=== PATIENT | female | born 1965 | race Asian ===

== ENCOUNTER 2017-03-31 15:11 | Inpatient (IN) | payer MEDICAID ==
[~2017-03-31] VITALS: Ht 162.6 cm; Wt 64.1 kg
[~2017-03-31 15:11] MED LIST: CAR125T OR; FURO80TA PO; HYDR50TA15 PO; LEV50T PO; LEVO25TA6 PO; LOS50T PO; SIMV-8 PO
[2017-03-31 16:06] LABS: Basophils # (auto) 0.1 uL; Basophils % (auto) 1.4 % (0.0-2.0); Eosinophils # (auto) 0.2 uL; Eosinophils % (auto) 4.8 % (0.0-7.0); Hematocrit 30.9 % (36.0-46.0); Hemoglobin 10.6 g/dL (12.2-16.2); Lymphocytes # (auto) 0.8 uL; Lymphocytes % (auto) 16.8 % (10.0-50.0); Mean Corpuscular Hemoglobin 31.8 pg (28.0-32.0); Mean Corpuscular Hgb Conc. 34.2 g/dL (32.0-36.0); Mean Corpuscular Volume 93.2 fL (80.0-100.0); Mean Platelet Volume 8.6 fL (6.9-10.8); Monocytes # (auto) 0.4 uL; Monocytes % (auto) 8.5 % (0.0-12.0); Neutrophils # (auto) 3.4 uL; Neutrophils % (auto) 68.5 % (37.0-80.0); Platelet Count (auto) 159 10^3/uL (140-450); Red Cell Distribution Width 13.7 % (11.8-14.3)
[2017-03-31 16:20] LABS: INR 1.02 (0.9-1.15); Partial Thromboplastin Time 27.8 sec (22.64-33.71); Prothrombin Time 11.1 sec (9.37-12.3)
[2017-03-31 16:28] LABS: Albumin 3.6 g/dL (3.4-5.0); BUN/Creatinine Ratio 4.6; Bilirubin, Total 0.7 mg/dL (0.2-1.0); Calcium 7.4 mg/dL (8.5-10.1); Magnesium 2.2 mg/dL (1.6-2.6); Potassium 3.7 mmol/L (3.5-5.1); Total Protein 8.3 g/dL (6.4-8.2)
[2017-03-31 16:40] LABS: Temperature: 21.9 C (20.0-25.0)
[2017-03-31] MEDS ORDERED: FUROSEMIDE 40 MG/4 ML VIAL IV ONE (20:00)
[2017-03-31 21:30] VITALS: BP 183/76
[2017-03-31 21:35] VITALS: BP 183/76
[2017-03-31] MEDS: hydrALAZINE HCL 25 MG TAB PO SCH (22:17)
[2017-03-31] MEDS: ATORVASTATIN 20 MG TAB PO SCH (22:17)
[2017-03-31] MEDS: CARVEDILOL 12.5 MG TAB PO SCH (22:19)
[2017-03-31] MEDS ORDERED: GLIM4TAB42 PO (23:34)
[2017-03-31] MEDS ORDERED: AMLO5TAB2 PO (23:34)
[2017-03-31] MEDS ORDERED: PIO30T PO (23:34)
[2017-03-31] MEDS ORDERED: CARV12.544 PO (23:34)
[2017-04-01] MEDS ORDERED: DEXTROSE (50%) 50ML SYRG IV PRN (00:15)
[2017-04-01 05:00] VITALS: BP 144/72
[2017-04-01 06:13] LABS: Basophils # (auto) 0 uL; Eosinophils # (auto) 0.3 uL; Eosinophils % (auto) 6.6 % (0.0-7.0); Hematocrit 29.7 % (36.0-46.0); Lymphocytes % (auto) 20.7 % (10.0-50.0); Mean Corpuscular Hemoglobin 31.8 pg (28.0-32.0); Mean Corpuscular Hgb Conc. 33.6 g/dL (32.0-36.0); Mean Corpuscular Volume 94.4 fL (80.0-100.0); Mean Platelet Volume 8.5 fL (6.9-10.8); Monocytes # (auto) 0.5 uL; Monocytes % (auto) 10.2 % (0.0-12.0); Neutrophils # (auto) 2.9 uL; Neutrophils % (auto) 61.5 % (37.0-80.0); Nucleated Red Blood Cells % 0.1 %; Platelet Count (auto) 143 10^3/uL (140-450); Red Cell Distribution Width 13.4 % (11.8-14.3); White Blood Cell 4.6 10^3/uL (4.4-10.8)
[2017-04-01] MEDS: InsuLIN REG 1unit/0.01ml Soln (100units/ml) SC SCH ×4 (06:48→22:14)
[2017-04-01 06:49] LABS: BUN/Creatinine Ratio 5.6; Calcium 7.4 mg/dL (8.5-10.1); Potassium 3.6 mmol/L (3.5-5.1)
[2017-04-01] MEDS: ACCU-CHEK COMFORT CURVE STRIP VI SCH ×4 (06:49→22:15)
[2017-04-01 06:50] LABS: Albumin 3.2 g/dL (3.4-5.0); Bilirubin, Total 0.5 mg/dL (0.2-1.0); Magnesium 2.2 mg/dL (1.6-2.6); Phosphorus 4.1 mg/dL (2.5-4.90); Total Protein 6.9 g/dL (6.4-8.2)
[2017-04-01] MEDS: LEVOTHYROXINE SODIUM 25 MCG TAB PO SCH (06:52)
[2017-04-01 08:00] VITALS: BP 146/59
[2017-04-01 09:00] VITALS: BP 146/59
[2017-04-01] MEDS: hydrALAZINE HCL 25 MG TAB PO SCH ×2 (10:24→22:04)
[2017-04-01] MEDS: BUMETANIDE 1 MG TAB PO SCH (10:25)
[2017-04-01] MEDS: CARVEDILOL 12.5 MG TAB PO SCH ×2 (10:25→22:04)
[2017-04-01] MEDS: LOSARTAN POTASSIUM 25 MG TAB PO SCH (10:26)
[2017-04-01] MEDS: HEPARIN SODIUM (PORCINE) 5000 UNITS/ML 1ML VIAL SC SCH ×2 (10:29→22:14)
[2017-04-01 13:00] VITALS: BP 155/71
[2017-04-01 16:59] VITALS: BP 142/67
[2017-04-01] MEDS: ATORVASTATIN 20 MG TAB PO SCH (22:03)
[2017-04-01 22:06] VITALS: BP 150/54
[2017-04-02 04:51] VITALS: BP 148/68
[2017-04-02 06:13] LABS: Basophils # (auto) 0 uL; Eosinophils # (auto) 0.3 uL; Eosinophils % (auto) 6.8 % (0.0-7.0); Hematocrit 29.6 % (36.0-46.0); Lymphocytes % (auto) 19.8 % (10.0-50.0); Mean Corpuscular Hemoglobin 31.9 pg (28.0-32.0); Mean Corpuscular Hgb Conc. 33.8 g/dL (32.0-36.0); Mean Corpuscular Volume 94.2 fL (80.0-100.0); Monocytes # (auto) 0.5 uL; Monocytes % (auto) 9.3 % (0.0-12.0); Neutrophils # (auto) 3.2 uL; Neutrophils % (auto) 63.1 % (37.0-80.0); Nucleated Red Blood Cells % 0.1 %; Platelet Count (auto) 145 10^3/uL (140-450); Red Cell Distribution Width 13.7 % (11.8-14.3); White Blood Cell 5.1 10^3/uL (4.4-10.8)
[2017-04-02] MEDS: LEVOTHYROXINE SODIUM 25 MCG TAB PO SCH (06:34)
[2017-04-02 06:36] LABS: Albumin 3.2 g/dL (3.4-5.0); BUN/Creatinine Ratio 6.1; Bilirubin, Total 0.6 mg/dL (0.2-1.0); Magnesium 2.5 mg/dL (1.6-2.6); Phosphorus 5.4 mg/dL (2.5-4.90); Potassium 3.7 mmol/L (3.5-5.1); Total Protein 7.2 g/dL (6.4-8.2)
[2017-04-02] MEDS: ACCU-CHEK COMFORT CURVE STRIP VI SCH ×4 (06:46→22:00)
[2017-04-02] MEDS: InsuLIN REG 1unit/0.01ml Soln (100units/ml) SC SCH ×4 (06:46→22:00)
[2017-04-02 08:00] VITALS: BP 137/47
[2017-04-02] MEDS: BUMETANIDE 1 MG TAB PO SCH (10:20)
[2017-04-02] MEDS: CARVEDILOL 12.5 MG TAB PO SCH ×2 (10:20→22:31)
[2017-04-02] MEDS: hydrALAZINE HCL 25 MG TAB PO SCH ×2 (10:21→22:31)
[2017-04-02] MEDS: LOSARTAN POTASSIUM 25 MG TAB PO SCH (10:21)
[2017-04-02] MEDS: HEPARIN SODIUM (PORCINE) 5000 UNITS/ML 1ML VIAL SC SCH ×2 (10:24→22:45)
[2017-04-02 12:00] VITALS: BP 135/63
[2017-04-02 15:24] LABS: Urine Bilirubin Negative (Negative); Urine Blood 2+ /uL (Negative); Urine Color Yellow (Yellow); Urine Glucose 1+ mg/dL (Normal); Urine Ketone Negative (Negative); Urine Mucus FEW (None Seen); Urine Nitrite Negative (Negative); Urine RBC 2 /hpf (0 - 4); Urine Squamous Epithelial Cell MOD /hpf (<5); Urine Urobilinogen Normal (Negative); Urine pH 7.5 (5.0-8.0)
[2017-04-02 17:00] VITALS: BP 149/56
[2017-04-02 22:00] VITALS: BP 169/55
[2017-04-02] MEDS: ATORVASTATIN 20 MG TAB PO SCH (22:32)
[2017-04-03 05:20] VITALS: BP 153/66
[2017-04-03 05:41] LABS: Calcium 7.2 mg/dL (8.5-10.1); Potassium 4.5 mmol/L (3.5-5.1)
[2017-04-03 05:46] LABS: BUN/Creatinine Ratio 6.6
[2017-04-03] MEDS: LEVOTHYROXINE SODIUM 25 MCG TAB PO SCH (06:25)
[2017-04-03] MEDS: InsuLIN REG 1unit/0.01ml Soln (100units/ml) SC SCH ×4 (06:26→22:01)
[2017-04-03] MEDS: ACCU-CHEK COMFORT CURVE STRIP VI SCH ×4 (06:26→22:01)
[2017-04-03 08:00] VITALS: BP 124/51
[2017-04-03] MEDS ORDERED: SODIUM CHL 0.9% 1000 ML BAG XX ONE (08:00)
[2017-04-03] MEDS ORDERED: EPOETIN ALFA 3,000 UNIT/1 ML VIAL IV ONE (08:00)
[2017-04-03] MEDS ORDERED: EPOETIN ALFA 2,000 UNIT/1 ML VIAL IV ONE (08:00)
[2017-04-03] MEDS: CARVEDILOL 12.5 MG TAB PO SCH ×2 (09:28→22:01)
[2017-04-03] MEDS: hydrALAZINE HCL 25 MG TAB PO SCH ×2 (09:29→22:00)
[2017-04-03] MEDS: BUMETANIDE 1 MG TAB PO SCH (09:29)
[2017-04-03] MEDS: LOSARTAN POTASSIUM 25 MG TAB PO SCH (09:30)
[2017-04-03] MEDS: HEPARIN SODIUM (PORCINE) 5000 UNITS/ML 1ML VIAL SC SCH ×2 (10:00→22:02)
[2017-04-03 12:00] VITALS: BP 146/71
[2017-04-03 17:00] VITALS: BP 178/70
[2017-04-03] MEDS: ATORVASTATIN 20 MG TAB PO SCH (22:01)
[2017-04-03 22:07] VITALS: BP 179/75
[2017-04-04 05:21] VITALS: BP 138/59
[2017-04-04 06:26] LABS: Basophils # (auto) 0 uL; Basophils % (auto) 0.9 % (0.0-2.0); Eosinophils # (auto) 0.3 uL; Eosinophils % (auto) 5.2 % (0.0-7.0); Hematocrit 31.7 % (36.0-46.0); Hemoglobin 10.7 g/dL (12.2-16.2); Lymphocytes # (auto) 1.1 uL; Lymphocytes % (auto) 23.4 % (10.0-50.0); Mean Corpuscular Hemoglobin 32.2 pg (28.0-32.0); Mean Corpuscular Hgb Conc. 33.9 g/dL (32.0-36.0); Mean Platelet Volume 9.3 fL (6.9-10.8); Monocytes # (auto) 0.5 uL; Neutrophils % (auto) 60.5 % (37.0-80.0); Platelet Count (auto) 140 10^3/uL (140-450); Red Cell Distribution Width 13.7 % (11.8-14.3); White Blood Cell 4.9 10^3/uL (4.4-10.8)
[2017-04-04 06:28] LABS: BUN/Creatinine Ratio 5.3; Potassium 4.6 mmol/L (3.5-5.1)
[2017-04-04 06:29] LABS: Calcium 7.9 mg/dL (8.5-10.1)
[2017-04-04] MEDS: ACCU-CHEK COMFORT CURVE STRIP VI SCH ×4 (06:33→21:55)
[2017-04-04] MEDS: InsuLIN REG 1unit/0.01ml Soln (100units/ml) SC SCH ×4 (06:33→21:56)
[2017-04-04] MEDS: LEVOTHYROXINE SODIUM 25 MCG TAB PO SCH (06:33)
[2017-04-04 08:00] VITALS: BP 139/63
[2017-04-04 09:00] VITALS: BP 139/63
[2017-04-04] MEDS: LOSARTAN POTASSIUM 25 MG TAB PO SCH (10:00)
[2017-04-04] MEDS: HEPARIN SODIUM (PORCINE) 5000 UNITS/ML 1ML VIAL SC SCH ×2 (10:00→21:58)
[2017-04-04] MEDS: BUMETANIDE 1 MG TAB PO SCH (10:39)
[2017-04-04] MEDS: hydrALAZINE HCL 25 MG TAB PO SCH ×2 (10:40→21:54)
[2017-04-04] MEDS: CARVEDILOL 12.5 MG TAB PO SCH ×2 (10:41→21:55)
[2017-04-04 12:40] VITALS: BP 152/74
[2017-04-04] MEDS ORDERED: IOHEXOL 350 MG/ML 100ML IJ ONE ×2 (14:36→17:30)
[2017-04-04] MEDS ORDERED: LIDOCAINE 2%HCL (LOCAL ANESTH.) INJ 20ML MDV ONE (14:37)
[2017-04-04] MEDS ORDERED: MIDAZOLAM HCL 1MG/1ML-2 ML VIAL ONE (17:30)
[2017-04-04] MEDS ORDERED: SODIUM CHL 0.9% 0 ML ONE (17:30)
[2017-04-04] MEDS ORDERED: fentaNYL CITRATE 100 MCG/2 ML VL ONE (17:30)
[2017-04-04] MEDS ORDERED: ANGIOMAX 250 MG VIAL IV ONE (17:30)
[2017-04-04 20:00] VITALS: BP 143/72
[2017-04-04] MEDS: ATORVASTATIN 20 MG TAB PO SCH (21:54)
[2017-04-04] MEDS: SODIUM CHLOR 0.9% PF (SALINE LOCK) 10ML VIAL IV SCH (21:59)
[2017-04-04 22:21] VITALS: BP 143/72
[2017-04-05 04:57] VITALS: BP 172/71
[2017-04-05] MEDS: SODIUM CHLOR 0.9% PF (SALINE LOCK) 10ML VIAL IV SCH ×2 (05:53→16:45)
[2017-04-05] MEDS: ACCU-CHEK COMFORT CURVE STRIP VI SCH ×3 (06:39→17:00)
[2017-04-05] MEDS: InsuLIN REG 1unit/0.01ml Soln (100units/ml) SC SCH ×3 (06:39→17:00)
[2017-04-05] MEDS: LEVOTHYROXINE SODIUM 25 MCG TAB PO SCH (06:40)
[2017-04-05 07:10] LABS: BUN/Creatinine Ratio 6.4; Potassium 5.3 mmol/L (3.5-5.1)
[2017-04-05 08:00] VITALS: BP 134/59
[2017-04-05] MEDS ORDERED: EPOETIN ALFA 2,000 UNIT/1 ML VIAL IV ONE (08:00)
[2017-04-05] MEDS ORDERED: SODIUM CHL 0.9% 1000 ML BAG XX ONE ×2 (08:00→12:15)
[2017-04-05] MEDS ORDERED: EPOETIN ALFA 3,000 UNIT/1 ML VIAL IV ONE ×2 (08:00→12:15)
[2017-04-05 09:00] VITALS: BP 134/59
[2017-04-05] MEDS: hydrALAZINE HCL 25 MG TAB PO SCH (09:39)
[2017-04-05] MEDS: LOSARTAN POTASSIUM 25 MG TAB PO SCH (09:40)
[2017-04-05] MEDS: BUMETANIDE 1 MG TAB PO SCH (09:40)
[2017-04-05] MEDS: CARVEDILOL 12.5 MG TAB PO SCH (09:41)
[2017-04-05] MEDS: HEPARIN SODIUM (PORCINE) 5000 UNITS/ML 1ML VIAL SC SCH (09:45)
[2017-04-05 12:00] VITALS: BP 149/55
[2017-04-05 12:17] VITALS: BP 134/59
[2017-04-05 17:00] VITALS: BP 105/65
== END 2017-04-05 18:38 | disposition home or self-care (01) | DRG 192 ==
LOC: ER 15:20 → TELE 15:21 → TELE-WESTW 21:30
PROVIDERS: ADMIT Nurse Practitioner Acute Care; ATTEND Internal Medicine
PROC: 5A1D70Z Performance of Urinary Filtration, Intermittent, Less than 6 Hours Per Day (ICD-10-PCS; 2017-04-03)
PROC: 4A023N7 Measurement of Cardiac Sampling and Pressure, Left Heart, Percutaneous Approach (ICD-10-PCS; principal; 2017-04-04)
PROC: B2111ZZ Fluoroscopy of Multiple Coronary Arteries using Low Osmolar Contrast (ICD-10-PCS; 2017-04-04)
PROC: B2151ZZ Fluoroscopy of Left Heart using Low Osmolar Contrast (ICD-10-PCS; 2017-04-04)
PROC: 5A1D70Z Performance of Urinary Filtration, Intermittent, Less than 6 Hours Per Day (ICD-10-PCS; 2017-04-05)
DX: I13.2 Hypertensive heart and chronic kidney disease with heart failure and with stage 5 chronic kidney disease, or end stage renal disease (principal); I21.4 Non-ST elevation (NSTEMI) myocardial infarction; N18.6 End stage renal disease; I50.43 Acute on chronic combined systolic (congestive) and diastolic (congestive) heart failure; E44.0 Moderate protein-calorie malnutrition; E11.21 Type 2 diabetes mellitus with diabetic nephropathy; E11.22 Type 2 diabetes mellitus with diabetic chronic kidney disease; E87.1 Hypo-osmolality and hyponatremia; E78.5 Hyperlipidemia, unspecified; E11.51 Type 2 diabetes mellitus with diabetic peripheral angiopathy without gangrene; D63.8 Anemia in other chronic diseases classified elsewhere; I25.10 Atherosclerotic heart disease of native coronary artery without angina pectoris; E03.9 Hypothyroidism, unspecified; Z82.49 Family history of ischemic heart disease and other diseases of the circulatory system; Z99.2 Dependence on renal dialysis; Z68.24 Body mass index [BMI] 24.0-24.9, adult; Z79.02 Long term (current) use of antithrombotics/antiplatelets; Z79.82 Long term (current) use of aspirin; Z79.899 Other long term (current) drug therapy
CPT/HCPCS: 36415; 71010; 71250; 80048; 80053; 81001; 82962; 83036; 83735; 83880; 84100; 84484; 85025; 85379; 85610; 85730; 87081; 90935; 93005; 93306; 93458; 96374; 99152; 99153; J1642; J1815; J2250; Q4081

== ENCOUNTER 2018-07-16 11:42 | Emergency (ER) | payer MEDICAID ==
[~2018-07-16] VITALS: Ht 157.5 cm; Wt 63.5 kg
[~2018-07-16 11:42] MED LIST changes: +AMLO5TAB13 PO; -CAR125T OR; +CARV12.544 PO; -FURO80TA PO; +GLIM4TAB42 PO; -HYDR50TA15 PO; -LEV50T PO; -LEVO25TA6 PO; -LOS50T PO; +PIO30T PO; -SIMV-8 PO
[2018-07-16 14:08] LABS: Basophils # (auto) 0.1 uL; Basophils % (auto) 1.1 % (0.0-2.0); Eosinophils # (auto) 0.2 uL; Eosinophils % (auto) 3.8 % (0.0-7.0); Hematocrit 38.1 % (36.0-46.0); Hemoglobin 12.8 g/dL (12.2-16.2); Lymphocytes # (auto) 0.8 uL; Lymphocytes % (auto) 14.3 % (10.0-50.0); Mean Corpuscular Hemoglobin 33.4 pg (28.0-32.0); Mean Corpuscular Hgb Conc. 33.6 g/dL (32.0-36.0); Mean Corpuscular Volume 99.4 fL (80.0-100.0); Monocytes # (auto) 0.4 uL; Neutrophils # (auto) 4.3 uL; Neutrophils % (auto) 73.8 % (37.0-80.0); Nucleated Red Blood Cells % 0.1 %; Platelet Count (auto) 156 10^3/uL (140-450); Red Blood Cells 3.83 10^6/uL (4.0-5.20); Red Cell Distribution Width 15.7 % (11.8-14.3); White Blood Cell 5.8 10^3/uL (4.4-10.8)
[2018-07-16 14:24] LABS: Alanine Aminotransferase 38 U/L (13-56); Albumin 3.5 g/dL (3.4-5.0); Anion Gap 7 (5-15); Aspartate Aminotransferase 20 U/L (15-37); Blood Urea Nitrogen 12 mg/dL (7-18); Calcium 7.9 mg/dL (8.5-10.1); Carbon Dioxide 28 mmol/L (21-32); Chloride 102 mmol/L (98-107); Glucose 64 mg/dL (74-106); Potassium 3.3 mmol/L (3.5-5.1); Sodium 137 mmol/L (136-145)
[2018-07-16 14:29] LABS: Alkaline Phosphatase 122 U/L (45-117); BUN/Creatinine Ratio 3.8; GFR African American 20 mL/min; GFR Non-African American 17 mL/min; Total Protein 7.9 g/dL (6.4-8.2)
[2018-07-16] MEDS ORDERED: cloNIDine HCL 0.1 MG TAB ONE (14:42)
[2018-07-16] MEDS ORDERED: cloNIDine HCL 0.1 MG TAB PO ONE (14:45)
[2018-07-16 15:30] VITALS: BP 168/97
== END 2018-07-16 14:58 | disposition home or self-care (01) ==
LOC: EDBD 11:42 → ER 11:42
DX: E11.22 Type 2 diabetes mellitus with diabetic chronic kidney disease (principal); I13.2 Hypertensive heart and chronic kidney disease with heart failure and with stage 5 chronic kidney disease, or end stage renal disease; I50.9 Heart failure, unspecified; N18.6 End stage renal disease; E78.5 Hyperlipidemia, unspecified; Z99.2 Dependence on renal dialysis
CPT/HCPCS: 36415; 71045; 80053; 84484; 85025; 93005

== ENCOUNTER 2020-11-13 00:28 | Emergency (ER) | payer MEDICARE, MEDICAID ==
[~2020-11-13] VITALS: Ht 172.7 cm; Wt 56.7 kg
[2020-11-13 00:28] VITALS: BP 143/62
[~2020-11-13 00:28] MED LIST changes: +AMLO-489 PO; -AMLO5TAB13 PO
== END 2020-11-13 02:28 | disposition left against medical advice (07) ==
LOC: ER 00:28
DX: L02.414 Cutaneous abscess of left upper limb (principal); Z53.21 Procedure and treatment not carried out due to patient leaving prior to being seen by health care provider

== ENCOUNTER 2021-11-21 06:17 | Inpatient (IN) | payer MEDICARE, MEDICAID ==
[~2021-11-21] VITALS: Ht 162.6 cm; Wt 61.0 kg
[2021-11-21] MEDS ORDERED: FUROSEMIDE 40 MG/4 ML VIAL IV ONE (07:00)
[2021-11-21 07:02] LABS: Hematocrit 32.8 % (36.0-46.0); Mean Corpuscular Hemoglobin 31.5 pg (28.0-32.0); Mean Corpuscular Hgb Conc. 33.4 g/dL (32.0-36.0); Mean Corpuscular Volume 94.1 fL (80.0-100.0); Red Blood Cells 3.49 10^6/uL (4.0-5.20); Red Cell Distribution Width 14.5 % (11.8-14.3); White Blood Cell 5.9 10^3/uL (4.4-10.8)
[2021-11-21 07:07] LABS: Basophils % (manual) 0 (0.0-2.0); Blast Cells 0; Metamyelocytes % 0; Monocytes % (manual) 0 (0-12); Myelocytes % 0; Promyelocytes % 0; Reactive Lymphocytes 0
[2021-11-21] MEDS ORDERED: hydrALAZINE HCL 20 MG/ML VL IV ONE (07:15)
[2021-11-21 07:20] LABS: Albumin 3.4 g/dL (3.4-5.0); Calcium 7.9 mg/dL (8.5-10.1); Potassium 4.9 mmol/L (3.5-5.1)
[2021-11-21 07:22] LABS: Bilirubin, Total 0.5 mg/dL (0.2-1.0)
[2021-11-21 07:34] LABS: Band Neutrophils % (manual) 3; Eosinophils % (manual) 8 (0-7); Lymphocytes % (manual) 25 (10.0-50.0)
[2021-11-21] MEDS ORDERED: ONDANSETRON HCL 4 MG/2 ML VIAL IV ONE (07:45)
[2021-11-21] MEDS ORDERED: PROCHLORPERAZINE EDISYLATE 5 MG/ML 2ML VIAL IV ONE (09:45)
[2021-11-21] MEDS ORDERED: ACETAMINOPHEN 325 MG TAB PO PRN (10:00)
[2021-11-21] MEDS ORDERED: NITROGLYCERIN 0.4 MG SL TAB SL PRN (10:00)
[2021-11-21] MEDS ORDERED: DOCUSATE SOD 100 MG CAP PO PRN (10:00)
[2021-11-21] MEDS ORDERED: MORPHINE SULFATE INJ 2 MG/ml SYRG IV PRN ×2 (10:00)
[2021-11-21] MEDS: ZINC SULFATE 220mg CAP or TAB PO SCH (10:39)
[2021-11-21] MEDS: MULTIPLE VITAMIN TAB PO SCH (10:39)
[2021-11-21] MEDS: ASCORBIC ACID 500 MG TAB PO SCH ×2 (10:39→22:54)
[2021-11-21] MEDS: cefTRIAXone 1GM/50ML D5W 50 ML IV SCH (11:23)
[2021-11-21 13:00] VITALS: BP 160/90
[2021-11-21] MEDS: HYDROcodone-ACET 5/325MG TAB PO PRN ×2 (13:19→22:54)
[2021-11-21 16:00] VITALS: BP 149/84
[2021-11-21 22:00] VITALS: BP 180/75
[2021-11-21] MEDS: CARVEDILOL 3.125 MG TAB PO SCH (22:54)
[2021-11-22] MEDS: hydrALAZINE HCL 20 MG/ML VL IV PRN ×2 (00:17→15:23)
[2021-11-22] MEDS: HYDROcodone-ACET 5/325MG TAB PO PRN ×2 (06:08→21:58)
[2021-11-22 07:14] LABS: Basophils # (auto) 0.1 10 ^3/uL (0-0.2); Eosinophils # (auto) 0.3 10 ^3/uL (0-0.8); Eosinophils % (auto) 3.9 % (0.0-7.0); Hematocrit 28.8 % (36.0-46.0); Hemoglobin 9.5 g/dL (12.2-16.2); Lymphocytes # (auto) 0.8 10 ^3/uL (0.4-5.4); Mean Corpuscular Hemoglobin 31.5 pg (28.0-32.0); Mean Corpuscular Hgb Conc. 33.1 g/dL (32.0-36.0); Mean Corpuscular Volume 95.3 fL (80.0-100.0); Monocytes # (auto) 0.4 10 ^3/uL (0-1.3); Neutrophils # (auto) 5.7 10 ^3/uL (1.6-8.6); Neutrophils % (auto) 78.1 % (37.0-80.0); Nucleated Red Blood Cells % 0.1 %; Red Blood Cells 3.02 10^6/uL (4.0-5.20); Red Cell Distribution Width 14.7 % (11.8-14.3); White Blood Cell 7.3 10^3/uL (4.4-10.8)
[2021-11-22 07:28] LABS: Albumin 3.2 g/dL (3.4-5.0); BUN/Creatinine Ratio 7.9; Bilirubin, Total 0.5 mg/dL (0.2-1.0); Total Protein 6.7 g/dL (6.4-8.2)
[2021-11-22 07:40] LABS: Potassium 5.9 mmol/L (3.5-5.1)
[2021-11-22 08:00] VITALS: BP 156/57
[2021-11-22] MEDS: ZINC SULFATE 220mg CAP or TAB PO SCH (08:38)
[2021-11-22] MEDS: cefTRIAXone 1GM/50ML D5W 50 ML IV SCH (08:38)
[2021-11-22] MEDS: ONDANSETRON HCL 4 MG/2 ML VIAL IV PRN ×2 (08:39→20:58)
[2021-11-22] MEDS: CARVEDILOL 3.125 MG TAB PO SCH ×2 (08:39→21:57)
[2021-11-22] MEDS: ASCORBIC ACID 500 MG TAB PO SCH ×2 (08:39→21:58)
[2021-11-22] MEDS: MULTIPLE VITAMIN TAB PO SCH (08:39)
[2021-11-22 09:25] VITALS: BP 156/57
[2021-11-22 09:29] VITALS: BP 156/57
[2021-11-22] MEDS ORDERED: CALCIUM GLUC 1,000mg/50ml-NS 50 ML IV ONE (10:30)
[2021-11-22] MEDS ORDERED: SODIUM CHL 0.9% 1000 ML BAG XX ONE (10:30)
[2021-11-22 16:00] VITALS: BP 178/68
[2021-11-22] MEDS ORDERED: DEXTROSE (50%) 50ML SYRG IV PRN (16:15)
[2021-11-22] MEDS: LOSARTAN POTASSIUM 50 MG TAB PO SCH (16:15)
[2021-11-22] MEDS: ACCU-CHEK COMFORT CURVE STRIP VI SCH ×2 (16:34→22:08)
[2021-11-22] MEDS: InsuLIN REG 1unit/0.01ml Soln (100units/ml) SC SCH ×2 (16:34→22:11)
[2021-11-22 17:23] VITALS: BP 178/68
[2021-11-22] MEDS ORDERED: EPOETIN ALFA-EPBX 4,000 UNIT/ML VIAL SC ONE (21:00)
[2021-11-22] MEDS: ATORVASTATIN 20 MG TAB PO SCH (21:58)
[2021-11-23] VITALS (7 sets, daily range): BP systolic 100–196; BP diastolic 45–92
[2021-11-23] MEDS: InsuLIN REG 1unit/0.01ml Soln (100units/ml) SC SCH ×4 (06:41→22:00)
[2021-11-23] MEDS: ACCU-CHEK COMFORT CURVE STRIP VI SCH ×4 (06:41→22:07)
[2021-11-23] MEDS: cefTRIAXone 1GM/50ML D5W 50 ML IV SCH (09:31)
[2021-11-23] MEDS: ZINC SULFATE 220mg CAP or TAB PO SCH (09:31)
[2021-11-23] MEDS: MULTIPLE VITAMIN TAB PO SCH (09:31)
[2021-11-23] MEDS: ASCORBIC ACID 500 MG TAB PO SCH ×2 (09:31→22:07)
[2021-11-23] MEDS: CARVEDILOL 3.125 MG TAB PO SCH ×2 (09:32→22:08)
[2021-11-23] MEDS: LOSARTAN POTASSIUM 50 MG TAB PO SCH (09:32)
[2021-11-23] MEDS: amLODIPine BESYLATE 5 MG TAB PO SCH (09:33)
[2021-11-23 10:57] LABS: BUN/Creatinine Ratio 6.1; Calcium 7.6 mg/dL (8.5-10.1); Potassium 4.4 mmol/L (3.5-5.1)
[2021-11-23] MEDS ORDERED: hydrALAZINE HCL 25 MG TAB PO ONE (12:45)
[2021-11-23] MEDS ORDERED: SODIUM CHL 0.9% 1000 ML BAG XX ONE (13:15)
[2021-11-23 13:30] LABS: Hematocrit 31.2 % (36.0-46.0); Hemoglobin 10.3 g/dL (12.2-16.2)
[2021-11-23] MEDS: HYDROcodone-ACET 5/325MG TAB PO PRN (20:49)
[2021-11-23] MEDS ORDERED: EPOETIN ALFA-EPBX 10,000 UNIT/1ML VIAL SC ONE (21:00)
[2021-11-23] MEDS: ATORVASTATIN 20 MG TAB PO SCH (22:07)
[2021-11-24 05:00] VITALS: BP 94/35
[2021-11-24 05:29] LABS: Calcium 7.7 mg/dL (8.5-10.1); Potassium 4.1 mmol/L (3.5-5.1)
[2021-11-24 06:24] VITALS: BP 154/70
[2021-11-24] MEDS: ACCU-CHEK COMFORT CURVE STRIP VI SCH ×2 (06:26→12:06)
[2021-11-24] MEDS: InsuLIN REG 1unit/0.01ml Soln (100units/ml) SC SCH ×2 (06:26→12:07)
[2021-11-24 09:00] VITALS: BP 162/78
[2021-11-24] MEDS: ASCORBIC ACID 500 MG TAB PO SCH (09:52)
[2021-11-24] MEDS: MULTIPLE VITAMIN TAB PO SCH (09:54)
[2021-11-24] MEDS: ZINC SULFATE 220mg CAP or TAB PO SCH (09:54)
[2021-11-24] MEDS: amLODIPine BESYLATE 5 MG TAB PO SCH (09:54)
[2021-11-24] MEDS: CARVEDILOL 3.125 MG TAB PO SCH (09:56)
[2021-11-24] MEDS: cefTRIAXone 1GM/50ML D5W 50 ML IV SCH (09:56)
[2021-11-24] MEDS ORDERED: LOSARTAN POTASSIUM 50 MG TAB PO SCH (10:00)
[2021-11-24 13:00] VITALS: BP 183/81
[2021-11-24] MEDS ORDERED: LOSA-69 PO (15:28)
[2021-11-24] MEDS ORDERED: CAR3125T PO (15:28)
[2021-11-24] MEDS ORDERED: AML5T PO (15:28)
[2021-11-24] MEDS ORDERED: ATOR20TA50 PO (15:28)
[2021-11-24] MEDS ORDERED: DOXY-346 PO (15:29)
[2021-11-24 16:26] VITALS: BP 173/81
[2021-11-24 17:00] VITALS: BP 143/59
== END 2021-11-24 16:55 | disposition home or self-care (01) | DRG 193 ==
LOC: EDBD 06:17 → ER 06:17 → OVERFLOW 09:58 → TELE-WESTW 12:53
PROVIDERS: ADMIT Internal Medicine; ATTEND Internal Medicine
PROC: 5A1D70Z Performance of Urinary Filtration, Intermittent, Less than 6 Hours Per Day (ICD-10-PCS; principal; 2021-11-22)
PROC: 5A1D70Z Performance of Urinary Filtration, Intermittent, Less than 6 Hours Per Day (ICD-10-PCS; 2021-11-23)
DX: J18.9 Pneumonia, unspecified organism (principal); I50.43 Acute on chronic combined systolic (congestive) and diastolic (congestive) heart failure; N18.6 End stage renal disease; J96.01 Acute respiratory failure with hypoxia; J98.11 Atelectasis; I13.2 Hypertensive heart and chronic kidney disease with heart failure and with stage 5 chronic kidney disease, or end stage renal disease; I16.0 Hypertensive urgency; D63.1 Anemia in chronic kidney disease; E11.40 Type 2 diabetes mellitus with diabetic neuropathy, unspecified; E87.5 Hyperkalemia; E11.22 Type 2 diabetes mellitus with diabetic chronic kidney disease; E78.5 Hyperlipidemia, unspecified; Z20.822 Contact with and (suspected) exposure to COVID-19; Z60.3 Acculturation difficulty; Z79.4 Long term (current) use of insulin; Z80.0 Family history of malignant neoplasm of digestive organs; Z82.49 Family history of ischemic heart disease and other diseases of the circulatory system; Z83.3 Family history of diabetes mellitus; Z99.2 Dependence on renal dialysis
CPT/HCPCS: 36415; 36600; 71045; 80048; 80053; 80061; 82805; 82962; 83036; 83880; 84132; 84484; 85007; 85014; 85018; 85025; 85027; 90935; 93005; 96365; 96375; 99291; G0378; J0696; J1642; J1815; J2405